=== PATIENT | female | born 1930 | race Caucasian/White ===

== ENCOUNTER → 2016-12-11 | Outpatient (CLI) | payer MEDICARE | END | disposition home or self-care (01) | LOC: LABWHC1 11:27 | PROVIDERS: ATTEND Ophthalmology | DX: H04.123 Dry eye syndrome of bilateral lacrimal glands (principal) | CPT/HCPCS: 36415 ==

== ENCOUNTER → 2017-06-19 | Outpatient (CLI) | payer MEDICARE | END | disposition home or self-care (01) | LOC: LABWHC1 07:57 | PROVIDERS: ATTEND Ophthalmology | DX: H16.223 Keratoconjunctivitis sicca, not specified as Sjogren's, bilateral (principal); H04.123 Dry eye syndrome of bilateral lacrimal glands | CPT/HCPCS: 36415 ==

== ENCOUNTER → 2017-08-06 | Outpatient (CLI) | payer MEDICARE ==
--- NOTE | 2017-08-06 13:34 | BD ---
EXAMINATION TYPE: MG DEXA axial skeleton. DATE OF EXAM: 08/06/2017 COMPARISON: NONE CLINICAL HISTORY: Postmenopausal female Height: 56 IN Weight: 110 LBS FRAX RISK QUESTIONS: Alcohol (3 or more units per day): NO Family History (Parent hip fracture): NO Glucocorticoids (More than 3mos): NO (Ex: prednisone, prednisolone, methylprednisolone, dexamethasone, and hydrocortisone). History of Fracture in Adulthood: NO Secondary Osteoporosis: 1. Type 1 Diabetes: NO 2. Hyperthyroidism: NO 3. Menopause before 45: NO 4. Malnutrition: NO 5. Chronic liver disease: NO Rheumatoid Arthritis: NO Current Tobacco Use: NO RISK FACTORS HISTORY OF: Family History of Osteoporosis: YES MOTHER, SISTERS(3) Active: YES Postmenopausal woman: AGE 59 Take estrogen and/or progesterone medications: NOT NOW How long: AGE 59 - 81 Lost more than 2 inches in height since high school: YES 4" MEDICATIONS: Thyroid Medications: YES Which medication: Synthroid How Lon YEARS Additional Medications: SYNTHROID, LOSARTAN, CENTRUM, VIT D3, MAGNESIUM, CALCIUM, FISH OIL, BABY ASPI RIN, AUTOLOGOUS SERUM TEARS EXAM MEASUREMENTS: Bone mineral densitometry was performed using the [employer] System. Bone mineral density as measured about the Lumbar spine is: ----- L1-L4(G/cm2): 0.880 T Score Values are as follows: ----- L2: -3.0 ----- L3: -2.4 ----- L4: -1.7 ----- L1-L4: -2.5 Bone mineral density has: Decreased -14.5% since study of: 07/16/2002 Bone mineral density about the R hip (g/cm2): 0.695 Bone mineral density about the L hip (g/cm2): 0.708 T Score values are as follows: -----R Neck: -2.5 -----L Neck: -2.4 -----R Total: -2.6 -----L Total: -2.5 Bone mineral density has: Decreased -29.8% since study of: 07/16/2002 IMPRESSION: Osteoporosis (T Score less than -2.5) as noted by T Score values There is increased fracture risk and therapy is usually indicated based on age. Re-Screen 1-2 years. NOTE: T-SCORE=SD OF THE YOUNG ADULT MEAN.
== END | disposition home or self-care (01) ==
LOC: RADBDWWP 09:10
PROVIDERS: ATTEND Family Medicine
DX: M81.0 Age-related osteoporosis without current pathological fracture (principal)
CPT/HCPCS: 77080

== ENCOUNTER → 2017-08-24 | Outpatient (CLI) | payer MEDICARE ==
--- NOTE | 2017-08-27 11:28 | MM ---
Reason for exam: screening (asymptomatic). Last mammogram was performed 1 year ago. History: Patient is postmenopausal. Family history of breast cancer in mother, breast cancer in 2 sisters at age 70, and breast cancer in daughter at age 52. Benign excisional biopsy of the left breast, December 31, 1997. Took estrogen for 22 years beginning at age 55. Physical Findings: A clinical breast exam by your physician is recommended on an annual basis and results should be correlated with mammographic findings. MG 3D Screening Mammo W/Cad Bilateral CC and MLO view(s) were taken. Prior study comparison: August 21, 2016, bilateral MG 3d screening mammo w/cad. August 20, 2015, bilateral MG screening mammo w CAD. The breast tissue is heterogeneously dense. This may lower the sensitivity of mammography. Finding: There are typically benign vascular, dystrophic, round calcifications in both breasts. There is a chronic nodularity in the right breast. There is no discrete abnormality. ASSESSMENT: Benign, BI-RAD 2 RECOMMENDATION: Routine screening mammogram of both breasts in 1 year.
== END | disposition home or self-care (01) ==
LOC: RADMAMWWP 12:43
PROVIDERS: ATTEND Family Medicine
DX: Z12.31 Encounter for screening mammogram for malignant neoplasm of breast (principal)
CPT/HCPCS: 77063; G0202

== ENCOUNTER → 2017-10-08 | Outpatient (CLI) | payer MEDICARE | END | disposition home or self-care (01) | LOC: LABWHC1 09:12 | PROVIDERS: ATTEND Ophthalmology | DX: H16.223 Keratoconjunctivitis sicca, not specified as Sjogren's, bilateral (principal); H04.123 Dry eye syndrome of bilateral lacrimal glands | CPT/HCPCS: 36415 ==

== ENCOUNTER → 2018-03-18 | Outpatient (CLI) | payer MEDICARE | END | disposition home or self-care (01) | LOC: LABWHC1 09:03 | PROVIDERS: ATTEND Ophthalmology | DX: Z02.89 Encounter for other administrative examinations (principal) | CPT/HCPCS: 36415 ==

== ENCOUNTER → 2018-07-30 | Outpatient (CLI) | payer MEDICARE | END | disposition home or self-care (01) | LOC: LABWHC1 08:17 | PROVIDERS: ATTEND Ophthalmology | DX: H16.223 Keratoconjunctivitis sicca, not specified as Sjogren's, bilateral (principal); H04.123 Dry eye syndrome of bilateral lacrimal glands | CPT/HCPCS: 36415 ==

== ENCOUNTER → 2018-08-30 | Outpatient (CLI) | payer MEDICARE ==
--- NOTE | 2018-09-02 11:00 | MM ---
Reason for exam: screening (asymptomatic). Last mammogram was performed 1 year ago. History: Patient is postmenopausal. Family history of breast cancer in mother, breast cancer in 2 sisters at age 70, and breast cancer in daughter at age 52. Benign excisional biopsy of the left breast, December 31, 1997. Took estrogen for 22 years beginning at age 55. Physical Findings: A clinical breast exam by your physician is recommended on an annual basis and results should be correlated with mammographic findings. MG 3D Screening Mammo W/Cad Bilateral CC and MLO view(s) were taken. Prior study comparison: August 24, 2017, bilateral MG 3d screening mammo w/cad. August 21, 2016, bilateral MG 3d screening mammo w/cad. The breast tissue is heterogeneously dense. This may lower the sensitivity of mammography. Benign appearing bilateral calcifications. No suspicious abnormality. No significant changes when compared with prior studies. ASSESSMENT: Benign, BI-RAD 2 RECOMMENDATION: Routine screening mammogram of both breasts in 1 year.
== END | disposition home or self-care (01) ==
LOC: RADMAMWWP 07:54
PROVIDERS: ATTEND Family Medicine
DX: Z12.31 Encounter for screening mammogram for malignant neoplasm of breast (principal)
CPT/HCPCS: 77063; 77067

== ENCOUNTER → 2018-12-30 | Outpatient (CLI) | payer MEDICARE | END | disposition home or self-care (01) | LOC: LABWHC1 08:22 | PROVIDERS: ATTEND Ophthalmology | DX: H16.223 Keratoconjunctivitis sicca, not specified as Sjogren's, bilateral (principal); H04.123 Dry eye syndrome of bilateral lacrimal glands | CPT/HCPCS: 36415 ==

== ENCOUNTER → 2019-05-20 | Outpatient (CLI) | payer MEDICARE | END | disposition home or self-care (01) | LOC: LABWHC1 14:03 | PROVIDERS: ATTEND Ophthalmology | DX: Z53.9 Procedure and treatment not carried out, unspecified reason (principal) ==

== ENCOUNTER → 2019-09-11 | Outpatient (CLI) | payer MEDICARE ==
--- NOTE | 2019-09-11 11:50 | MM ---
Reason for exam: screening (asymptomatic). Last mammogram was performed 1 year ago. History: Patient is postmenopausal. Family history of breast cancer in mother, breast cancer in 2 sisters at age 70, and breast cancer in daughter at age 52. Benign excisional biopsy of the left breast, December 31, 1997. Took estrogen for 22 years beginning at age 55. Physical Findings: A clinical breast exam by your physician is recommended on an annual basis and results should be correlated with mammographic findings. MG 3D Screening Mammo W/Cad Bilateral CC and MLO view(s) were taken. Prior study comparison: August 30, 2018, bilateral MG 3d screening mammo w/cad. August 24, 2017, bilateral MG 3d screening mammo w/cad. August 21, 2016, bilateral MG 3d screening mammo w/cad. August 20, 2015, bilateral MG screening mammo w CAD. Benign appearing bilateral calcifications. There are benign appearing stable round circumscribed right upper outer quadrant masses at middle and anterior depth back to 2014. No suspicious abnormality. No significant changes when compared with prior studies. ASSESSMENT: Benign, BI-RAD 2 RECOMMENDATION: Routine screening mammogram of both breasts in 1 year.
== END | disposition home or self-care (01) ==
LOC: RADMAMWWP 10:47
PROVIDERS: ATTEND Family Medicine
DX: Z12.31 Encounter for screening mammogram for malignant neoplasm of breast (principal)
CPT/HCPCS: 77063; 77067

== ENCOUNTER → 2019-09-15 | Outpatient (CLI) | payer MEDICARE | END | disposition home or self-care (01) | LOC: LABWHC1 08:27 | PROVIDERS: ATTEND Ophthalmology | DX: H16.223 Keratoconjunctivitis sicca, not specified as Sjogren's, bilateral (principal); H04.123 Dry eye syndrome of bilateral lacrimal glands | CPT/HCPCS: 36415 ==

== ENCOUNTER → 2020-01-27 | Outpatient (CLI) | payer MEDICARE | END | disposition home or self-care (01) | LOC: LABWHC1 08:28 | PROVIDERS: ATTEND Ophthalmology | DX: H04.123 Dry eye syndrome of bilateral lacrimal glands (principal) | CPT/HCPCS: 36415 ==

== ENCOUNTER → 2020-06-21 | Outpatient (CLI) | payer MEDICARE | END | disposition home or self-care (01) | LOC: LABWHC1 08:40 | PROVIDERS: ATTEND Ophthalmology | DX: Z02.89 Encounter for other administrative examinations (principal) | CPT/HCPCS: 36415 ==

== ENCOUNTER → 2020-09-13 | Outpatient (CLI) | payer MEDICARE ==
--- NOTE | 2020-09-14 13:37 | MM ---
Reason for exam: screening (asymptomatic). Last mammogram was performed 1 year ago. History: Patient is postmenopausal. Family history of breast cancer in mother, breast cancer in 2 sisters at age 70, and breast cancer in daughter at age 52. Benign excisional biopsy of the left breast, December 31, 1997. Took estrogen for 22 years beginning at age 55. Physical Findings: A clinical breast exam by your physician is recommended on an annual basis and results should be correlated with mammographic findings. MG 3D Screening Mammo W/Cad Bilateral CC and MLO view(s) were taken. Prior study comparison: September 11, 2019, bilateral MG 3d screening mammo w/cad. August 30, 2018, bilateral MG 3d screening mammo w/cad. The breast tissue is heterogeneously dense. This may lower the sensitivity of mammography. There are benign appearing round vascular dystrophic calcifications bilaterally. Asymmetric breast tissue left upper aspect, stable. There is no discrete abnormality. ASSESSMENT: Benign, BI-RAD 2 RECOMMENDATION: Routine screening mammogram of both breasts in 1 year.
== END | disposition home or self-care (01) ==
LOC: RADMAMWWP 10:00
PROVIDERS: ATTEND Family Medicine
DX: Z12.31 Encounter for screening mammogram for malignant neoplasm of breast (principal)
CPT/HCPCS: 77063; 77067